=== PATIENT | female | born 1990 | race Asian ===

== ENCOUNTER 2024-01-26 06:41 | Outpatient (REF) | payer OTHER, SELFPAY | END 2024-01-26 06:42 | disposition home or self-care (01) | LOC: HO.UMASIMG 06:41 | PROVIDERS: Visit Provider Family Medicine | DX: Z13.89 Encounter for screening for other disorder (principal) ==

== ENCOUNTER 2024-01-28 06:03 | Outpatient (REF) | payer OTHER, SELFPAY ==
--- NOTE | ~2024-01-28 | US_ITS ---
EXAMINATION: US ABDOMEN COMPLETE CLINICAL INFORMATION: Epigastric pain. COMPARISON: None available. TECHNIQUE: Real-time imaging of the abdominal viscera. FINDINGS: PANCREAS: The visualized pancreas appears unremarkable but the pancreatic tail is obscured by bowel gas. ABDOMINAL AORTA: The proximal, mid, and distal segments are normal in caliber. INFERIOR VENA CAVA: Visualized portions are normal. LIVER: The liver is normal in size but demonstrates increased echogenicity suggesting hepatic steatosis. No focal hepatic lesion. There is no intrahepatic biliary duct dilatation seen. GALLBLADDER: There is a single large fundal gallstone present measuring 1.4 x 1.6 x 1.1 cm. The gallbladder is physiologically distended without evidence of wall thickening or pericholecystic fluid. COMMON BILE DUCT: Normal in caliber measuring 0.3 cm in diameter. RIGHT KIDNEY: No hydronephrosis. No renal calculi or focal parenchymal lesions. The kidney measures 8.7 cm in maximum dimension. LEFT KIDNEY: No hydronephrosis. No renal calculi or focal parenchymal lesions. The kidney measures 9.0 cm in maximum dimension. SPLEEN: Normal. The spleen measures 9.0 cm in maximum dimension. FREE FLUID: None. US/US abdomen complete IMPRESSION: 1. Cholelithiasis without evidence of cholecystitis. 2. Hepatic steatosis. Electronically signed by: Orlin Caal MD 01/28/2024 01:02 PM EDT
== END 2024-01-28 06:04 | disposition home or self-care (01) ==
LOC: HO.UMASIMG 06:03
PROVIDERS: Visit Provider Family Medicine
DX: R10.13 Epigastric pain (principal)
CPT/HCPCS: 76700

== ENCOUNTER 2025-04-18 06:38 | Outpatient (REF) | payer OTHER, SELFPAY ==
--- NOTE | ~2025-04-18 | US_ITS ---
EXAMINATION: US ABDOMEN HISTORY: fatty liver, gallstones, epigastric pain TECHNIQUE: Real-time grayscale ultrasound imaging of the abdomen was performed and images were reviewed. COMPARISON: Comparison is made with the prior examination dated 01/28/2024. FINDINGS: Liver: The right lobe of the liver measures 13.3 cm in size. The left lobe of the liver measures 9.6 cm in size. The liver demonstrates normal homogeneous echotexture. No focal mass or intrahepatic biliary ductal dilatation is identified. There is normal hepatopedal flow in the portal vein. Gallbladder and biliary tree: There is a single mobile 1.5 cm calculus in the gallbladder. There is no wall thickening or pericholecystic fluid. There is no sonographic Simmons sign. The common bile duct is normal in caliber measuring 3 mm. Kidneys: The right kidney measures 10.2 cm in length. The left kidney measures 10.5 cm in length. The kidneys are unremarkable, without evidence of masses, hydronephrosis, or calculi. Pancreas: The pancreatic head, neck, and body are unremarkable. The pancreatic tail is obscured by bowel gas. Spleen: The spleen is normal in size and contour, measuring 9.9 cm in length. Abdominal aorta and inferior vena cava: The visualized portions of the abdominal aorta and inferior vena cava are normal in caliber. There is no free fluid in the abdomen. US/US abdomen complete IMPRESSION: Cholelithiasis. Otherwise unremarkable abdominal ultrasound. Electronically signed by: Hawk Lockett MD 04/18/2025 10:02 AM [facility] [place]
--- OUTSIDE RECORDS SUMMARY | 2025-04-18 06:42 | XMS_ITS | Clinical Summary ---
Author Organization [facility] Address [address] [address] Phone Care Team Providers Care Harbor Tug Captain Name Role Phone Shweta Kuhn MD Primary Care Provider [email or web address] [email or web address] No known active allergies Medications vitamins no.2 ( VITAMIN NO.2 ORAL) Take by mouth. Active ibuprofen (ADVIL,MOTRIN) 600 MG tablet Take 1 tablet (600 mg total) by mouth every 6 (six) hours as needed for pain (specific location in comments). 40 tablet 1 1 Active docusate sodium (COLACE) 100 MG capsule Take 1 capsule (100 mg total) by mouth daily as needed for constipation. 12 capsule 1 1 03/27/20 25 Discontinu ed(No longer taking) Active Problems Problem Noted Date Diagnosed Date Calculus of gallbladder with out cholecystitis without obstruction 03/27/2025 Assessment & Plan (03/27/2025 4:00 PM EST): This is a 34-year-old woman who had a documented gallstone that was large and in the fundus and was greater than 1 cm in size which places her at increased risk for neoplasm of the gallbladder given the size of the gallstone. The patient is also attempting to get again and that may increase her risk for cholecystitis during . I described both these risks to the patient and I also told her that there was no minimally invasive way to get rid of gallstones. The patient reports she does not want to just throw her organs away and would like to talk with her regarding surgery. I discussed laparoscopic cholecystectomy in detail including risk benefits and alternatives. I discussed that she will not be able to lift greater than 5 to 10 pounds for the first 2 weeks after surgery and greater than 15 pounds for another 2 weeks to equal 4 weeks of lifting restrictions. Patient reports she is not ready to undergo surgical intervention at this time and will call us back if she would like to remove her gallbladder. Hyperthyroidism 05/03/2021 Class 1 obesity without seri ous comorbidity with body mass index (BMI) of 33.0 to 33.9 in adult 05/03/2021 Assessment & Plan (05/03/2021 12:24 PM EST): Has gained about 25 pounds with -monitor Screening labs ordered Hair loss 04/29/2021 state 01/24/2021 Overview (01/24/2021): Incision healing well, benign exam Assessment & Plan (01/24/2021 8:20 PM EDT): Keep next PP visit Pap smear abnormality of cer vix/human papillomavirus (HPV) positive 07/06/2020 Overview (07/06/2020): First lifetime pap 06/2020: NIL/HPV pos Plan: repeat pap in 1 year Resolved Problems Problem Noted Date Diagnosed Date Resolved Date Normal , unspecified trimester 12/31/2020 02/07/2021 Breech presentation of fetus 12/19/2020 01/21/2021 Overview (12/27/2020): Noted at 37 week visit, confirmed with US Pt doing spinning babies at home Decided on PCS for breech Assessment & Plan (12/27/2020 1:56 PM EDT): Breech today Echogenic intracardiac focus of fetus on ultrasound 08/31/2020 01/21/2021 Overview (08/31/2020): Pt reassured that risk of down's for this is very low; she had normal first trimester screen. She is however very anxious today, and asks if she can do any further non-invasive testing. I do say she can cfDNA if she wants; reviewed that there could be a cost, and also that her risk is low and I don't think necessary. SHe will consider and contact us if she wants this ordered. Encounter for supervision of normal first in first trimester 06/29/2020 02/07/2021 Overview (12/19/2020): OB-CMI 0 Rh positive GC/Chlam neg PAP done 06/29/20 Tdap given Flu received Hgb 11.9 GTT 128 28 wk Repeat RPR neg GBS neg PPBC * screening NT/first tri screen COVID vaccinated 09/2020 Assessment & Plan (08/01/2020 2:44 PM EDT): Anatomy scan ordered, will do AFP today. Discussed physical activity in , Ralph would like to start using her [place] bike again now that first trimester symptoms are better. Info given re: CBE options. Encounters Date Type Department Care Team Description 03/27/2025 3:00 PM EST Office Visit [facility] [address] [place] [address] Ekaterina Cardoso MD Calculus of gallbladder without cholecystitis without obstruction (Primary Dx) 03/20/2025 Transcribe Orders [facility] [address] [place] [address] Barbara Curtis DO from Last 3 Months Immunizations Immunization Administration Dates Next Due COVID-19 (Pre-03/02) Pfizer Vaccine, mRNA, PF Hepatitis B, unspecified formulation 02/08/2019, 01/04/2019 Influenza Quadrivalent Preservative Free IM 02/09,07/19/2019 Influenza, Unspecified Formulation 02/01/2021 MMR 01/04/2019 Tdap 11/16/2020,01/04/2019 Varicella 02/08/2019,01/04/2019 Family History Medical History Relation Comments No Known Problems Brother Heart attack Father Pneumonia Maternal Aunt Stroke Maternal Uncle Arthritis Mother Diabetes Mother No Known Problems Paternal Aunt Heart attack Paternal Grandfather No Known Problems Paternal Uncle No Known Problems Sister Relation Status Comments Brother Alive Father 42 Maternal Aunt Maternal Grandfather Maternal Grandmother Maternal Uncle Alive Mother Alive Paternal Aunt Alive Paternal Grandfather Paternal Grandmother JONO PINZON VERY OF HER FATHER Paternal Uncle Alive Sister Alive Social History Tobacco Use Types Packs/Day Years Used Date Smoking Tobacco: Never Smokeless Tobacco: Never Tobacco Cessation:Counseling Given: Not Answered Alcohol Use Standard Drinks/Week Comments Not Currently 1 (1 standard drink = 0.6 oz pur e alcohol) Child or Family Care Answer Date Record ed Do you have problems with on e of the following making it difficult for you to work, study, or receive health care? No 04/29/2021 Education Answer Date Recorded Are you interested in more education? Not on magdalene e 05/08/2023 Are you concerned about learning? Not on file 05/08/2023 No 05/08/2023 No 05/08/2023 Food Answer Date Recorded Within the past 6 months we worried whether our food would run out before we got money to buy more. Never True 04/29/2021 Within the past 6 months the food we bought just didn't last and we didn't have enough money to get more. Never True Residential Stability Answer Date Recor ded What is your housing situation today? I have marianna wang 04/29/2021 How many times have you moved in the past 12 mon ths? One time 04/29/2021 06 Are you worried that in t he next 2 months, you may not have your own housing to live in? No 04/29/2021 Paying for Meds Answer Date Recorded Do you have trouble paying for medicines? No 04/29/2021 Paying Utility Bills Answer Date Record ed Do you have trouble paying your heating or elect ricity bill? No 04/29/2021 Transportation Answer Date Recorded Has the lack of transportati on kept you from medical appointments or from getting medications? No 04/29/2021 Unemployment Answer Date Recorded Are you currently unemployed or working on a part-time or temporary basis, and looking for work? No 04/29/2021 Digital Access Answer Date Recorded No 10/04/2022 No 10/04/2022 Reliable internet access at home? Not on file 10/04/2022 Device with a working camera? 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 Not on file Not on file Last Filed Vital Signs Vital Sign Reading Time Taken Comments Blood Pressure 110/70 03/27/2025 3:05 PM EST Pulse 68 03/27/2025 3:05 PM EST Temperature 36.6 C (97.8 F) 03/27/2025 3:05 PM EST Respiratory Rate 18 01/04/2021 3:00 PM EDT Oxygen Saturation 99% 03/27/2025 3:05 PM EST Inhaled Oxygen Concentration - - Weight 78.9 kg (174 lb) 03/27/2025 3:05 PM EST Height 157.5 cm (5' 2.01 ) 03/27/2025 3:05 PM ES T Body Mass Index 31.82 03/27/2025 3:05 PM EST Plan of Treatment Upcoming Encounters Date Type Department Care Team (Late st Contact Info) Description 04/20/2025 9:00 AM EST Office Visit [facility] [address] [place] [address] [place] [address] Wendie Sandoval MD [address] [place] [address], [address] [place] [address] [email or web address] Health Maintenance Due Date Last Done Comments DEPRESSION SCREENING 04/29/2022 04/29/2021 PAP SMEAR 06/29/2023 06/29/2020 SCREENING FOR DIABETES 04/29/2024 1, 10/01/2020 INFLUENZA VACCINE (#1) 2024 1, 03/02/2020, 07/19/2019 COVID-19 VACCINE (2024-2 6 season) 2025 09/07/2020 Adult Td,Tdap Booster 11/16/2030 11/16/2020 , 01/04/2019 HEPATITIS C SCREENING Completed 06/29/2020 , 06/29/2020 HIV ONE-TIME SCREENING (18-6 5 YEARS) Completed 06/29/2020 SMOKING STATUS SCREENING (On ce After 26 Yrs) Completed 03/27/2025 HEPATITIS A VACCINES Aged Out No long er eligible based on patient's age to complete this topic HIB VACCINES Aged Out No longer eligi ble based on patient's age to complete this topic IPV VACCINES Aged Out No longer eligi ble based on patient's age to complete this topic MENINGOCOCCAL VACCINES (ACWY) Aged Out No longer eligible based on patient's age to complete this topic MENINGOCOCCAL VACCINES (B) Aged Out N o longer eligible based on patient's age to complete this topic PNEUMOCOCCAL VACCINES (0-49 years) Aged Out No longer eligible b ased on patient's age to complete this topic Medical Devices Not on file Procedures Procedure Name Priority Date/Time Associated Diagnosis Comments GLUCOSE Routine 10/01/2020 12:35 PM EDT Encounter for supervision of normal first in first trimester HEPATITIS C ANTIBODY, QUALITATIVE Routine 06/29/2020 1:35 PM EST Encounter for supervision of normal first in first trimester PAP TEST Routine 06/29/2020 12:00 AM EST from Last 3 Months or Most Recently Relevant to Health Maintenance Results * (ABNORMAL) Glucose (10/01/2020 12:35 PM EDT) GLUCOSE 128(H) 70 - 99 mg/dL [facility] Blood 10/01/2020 12:3 5 PM EDT 10/01/2020 1:16 PM EDT us Marii Damon MD LAB BLOOD BKR ORDERABLES F inal Result [facility] [address] [place], [place] [id number] * Hepatitis C antibody, qualitative (06/29/2020 1:35 PM EST) HCV NON-REACTIV E NON-REACTI VE [facility] Blood 06/29/2020 1:35 PM EST 06/29/2020 1:49 PM EST us Wendie Sandoval MD LAB BLOOD BKR ORDERABLES Magdalena familia Result [address] [address] * Pap Smear (06/29/2020 12:00 AM EST) 06/29/2020 07/02/2020 8:5 2 AM EST Narrative SEE NARRATIVE - 07/05/2020 12:17 PM EST [address] [address] Clam Bed Worker: Tiffany Schmitz MD REAL ESTATE SITE ANALYST Cytology Report FINAL DIAGNOSIS A. PAP SMEAR (SUREPATH) CE: SPECIMEN ADEQUACY: Satisfactory for evaluation; transformation zone present. INTERPRETATION: NEGATIVE FOR INTRAEPITHELIAL LESION OR MALIGNANCY. Electronically Signed Out By: URI Stevenson(ASCP) URI Hutson(ASCP) The Pap test is a screening test primarily for squamous cancers and precursors and has associated false-negative and false-positive results. New technologies such as liquid-based preparations may decrease but will not eliminate all false-negative results. Regular sampling and follow-up of unexplained clinical signs and symptoms are recommended to minimize false negative results. PROCEDURES/ADDENDA HPV Testing (Requested) Ordered Date: 07/02/2020 A. PAP SMEAR (SUREPATH) CE: Human Papilloma Virus TEST Positive for high-risk Human Papilloma Virus (HR-HPV); additional testing was necessary to identify the most virulent high-risk strains. The current sample is positive for high-risk Human Papilloma Virus type Other high risk (non-type 16, 18, or 45) probe set (Includes 31, 33, 35, 39, 51, 52, 56, 58, 59, 66, 68) by [employer] Onclarity HR-HPV analysis. Negative for high-risk Human Papilloma Virus types 16, 18 and 45 by Surjit Jesus Onclarity HR-HPV analysis. Clinical correlation is advised. This HPV test was performed at [facility], [address] [place] [address]. This test has been FDA approved for SurePath cervical cytology specimens. The accuracy and precision of this test for all other specimen sources has been verified in the Cytopathology Laboratory of the [facility] and has not been cleared or approved by the U.S. Food and Drug Administration. Clinical correlation is advised. CLINICAL HISTORY Date of Last Menstrual Period: Not Provided Menstrual History: Other Clinical Conditions: Screening Pap SPECIMEN SOURCE A: PAP SMEAR (SUREPATH) CE Patient Name: RALPH RENEE : 1990 (Age: 29) Sex: F Institution: [facility] Location: [facility] Date of Collection: 06/29/2020 Date of Reported: 07/04/2020 11:13 Results to: Wendie Sandoval MD us Wendie Sandoval MD CYTOLOGY ORDERABLES Edited Re sult - Final SEE NARRATIVE from Last 3 Months or Most Recently Relevant to Health Maintenance Insurance [facility] CIGNA WELLFLEET CIGNA WELLFLEET CIGNA WELLFLEET CIGCLAIRE WELLDEEET ELIZA WELLKYLEIGHT Advance Directives For more information, please contact: [phone] (9AM - 5PM [place], Thursday-Thursday) Documents on File Type Date Recorded Patient [place] [facility] Proxy 01/08/2021 1:28 PM * Full Code (Latest Code Status on File) Date Activated Date Inactivated Comments 12/31/2020 7:26 AM Question Answer Comments Code Status Confirmed With: Patient Care Teams Harbor Tug Captain Relationship Specialty Start Date End Date Shweta Kuhn MD [email or web address] PCP - General Family Medicine 05/03/21 Additional Source Comments The information contained in this document represents components of the legal health record. It is not the complete legal health record.[facility]
--- OUTSIDE RECORDS SUMMARY | 2025-04-18 06:42 | XMS_ITS | Encounter Summary ---
Author Organization [facility] Address [address] [place] [address] [place] [phone] Phone Care Team Providers Care Leak Detector Name Role Phone Marii Damon MD Primary Care Provider [phone]- [phone] Shweta Kuhn MD Primary Care Provider [email or web address] Encounter Details Date Type Department Care Team (Late Contact Info) Description 12/14/2020 Ancillary Orders [facility] [address] [place] [address] [place] [address] Marii Damon MD [address] [facility], [address] [place] [id number] [email or web address] Encounter for supervision of normal first in first trimester Social History Tobacco Use Types Packs/Day Years Used Date Smoking Tobacco: Never Smokeless Tobacco: Never Alcohol Use Standard Drinks/Week Comments Yes 1 (1 standard drink = 0.6 oz pur e alcohol) Comments Yes Sex and Gender Information Value Date Recorded Sex Assigned at Female 08/12/2020 11:04 AM EDT Legal Sex Female 12:41 PM EST Gender Identity Female 08/12/2020 11:04 AM EDT Sexual Orientation Straight 08/12/2020 11 :04 AM EDT 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 Not on file Not on file documented as of this encounter Plan of Treatment Upcoming Encounters Date Type Department Care Team (Late Contact Info) Description 04/20/2025 9:00 AM EST Office Visit [facility] [address] [place] [address] [place] [address] Wendie Sandoval MD [address] [place] [address], [address] [place] [address] documented as of this encounter Results * US OB GREATER THAN OR EQUAL TO 14 WEEKS FOLLOW-UP ONLY (12/14/2020 2:38 PM EDT) Anatomical Region Laterality Modality Abdomen, Pelvis, Uterus/Adnexa U ltrasound 12/14/2020 3:48 PM EDT Impressions 12/15/2020 1:40 PM EDT Single live IUP in breech presentation with an EFW of 2796 grams which is at the 28th percentile. The ALEX is normal. Narrative 12/15/2020 1:40 PM EDT INDICATION: Presentation DATING: Exam Date: Last Menstruation: 03/30/2020 Estimated Delivery Date: January 04, 2021 Ultrasound Age: (36)w(00)d Gestational Age by LMP: (37)w(00)d Estimated Delivery by AUA: January 11, 2021 ANATOMY SCAN: Biparietal Diameter measures : 8.79 cm; dating of: (35)w(04)d; 24% by Hadlock Head Circumference measures : 32.17 cm; dating of: (36)w(03)d; 12% by Hadlock Abdominal Circumference measures : 31.84 cm; dating of: (35)w(06)d; 28% by Hadlock Femur Length measures : 7.05 cm; dating of: (36)w(01)d; 27% by Hadlock HC/AC Ratio is : 1.01 FL/BPD Ratio is : 80 % FL/AC Ratio is : 22 % Estimated Weight is : 6 lb 3 oz / 2796 g / 28 % by Hadlock Heart Activity : Present with the Heart Rate at : 126 bpm. Presentation is : Footling Breech Amniotic Fluid presents : Normal Maximum Vertical Pocket is : 6.5 cm Placental Location : Anterior right lateral. Placental Grade is : 2. WELLBEING ASSESSMENT: Amniotic Fluid Index (ALEX) : 14.18 cm Quad 1 : 4.93 cm Quad 2 : 6.51 cm Quad 3 : 0 cm Quad 4 : 2.74 cm TECH COMMENTS: [place] . Footling breech presentation. EFW = 28th%. ALEX = 14 cm. Fetus is active and breathing motions were observed. Transabdominal scanning was performed. Procedure Note Roland Luque MD - 12/15/2020 INDICATION: Presentation DATING: Exam Date: Last Menstruation: 03/30/2020 Estimated Delivery Date: January 04, 2021 Ultrasound Age: (36)w(00)d Gestational Age by LMP: (37)w(00)d Estimated Delivery by AUA: January 11, 2021 ANATOMY SCAN: Biparietal Diameter measures : 8.79 cm; dating of: (35)w(04)d; 24% byHadlock Head Circumference measures : 32.17 cm; dating of: (36)w(03)d; 12% byHadlock Abdominal Circumference measures : 31.84 cm; dating of: (35)w(06)d; 28%by Hadlock Femur Length measures : 7.05 cm; dating of: (36)w(01)d; 27% by Hadlock HC/AC Ratio is : 1.01 FL/BPD Ratio is : 80 % FL/AC Ratio is : 22 % Estimated Weight is : 6 lb 3 oz / 2796 g / 28 % by Hadlock Heart Activity : Present with the Heart Rate at : 126 bpm. Presentation is : Footling Breech Amniotic Fluid presents : Normal Maximum Vertical Pocket is : 6.5 cm Placental Location : Anterior right lateral. Placental Grade is : 2. WELLBEING ASSESSMENT: Amniotic Fluid Index (ALEX) : 14.18 cm Quad 1 : 4.93 cm Quad 2 : 6.51 cm Quad 3 : 0 cm Quad 4 : 2.74 cm TECH COMMENTS: [place] . Footling breech presentation. EFW = 28th%. ALEX = 14cm. Fetus is active and breathing motions were observed. Transabdominal scanning was performed. IMPRESSION: Single live IUP in breech presentation with an EFW of 2796 grams which isat the 28th percentile. The ALEX is normal. us Marii Damon MD IMG OBSTETRIC Final Res ult documented in this encounter Visit Diagnoses Diagnosis Encounter for supervision of normal first in first trimester Encounter for supervision of normal first in first trimester documented in this encounter Care Teams Leak Detector Relationship Specialty Start Date End Date Marii Damon MD [address] [place] [address] [address] [place] [address] PCP - General Obstetrics and Gynecology 10/01/2004/11 Shweta Kuhn MD [email or web address] PCP - General Family Medicine 05/03/21 documented as of this encounter Additional Source Comments The information contained in this document represents components of the legal health record. It is not the complete legal health record.[facility]
--- OUTSIDE RECORDS SUMMARY | 2025-04-18 06:42 | XMS_ITS | Encounter Summary ---
Author Organization [facility] Address [address] [place] [address] [place] [address] Phone Care Team Providers Care Peer Educator Name Role Phone Marii Damon MD Primary Care Provider [phone]- [phone] Shweta Kuhn MD Primary Care Provider [email or web address] Encounter Details Date Type Department Care Team (Late st Contact Info) Description 12/31/2020 Procedure Pass [facility] Procedures [address] [place] [address] Social History Tobacco Use Types Packs/Day Years Used Date Smoking Tobacco: Never Smokeless Tobacco: Never Alcohol Use Standard Drinks/Week Comments Not Currently 1 (1 standard drink = 0.6 oz pur e alcohol) Comments No Sex and Gender Information Value Date Recorded Sex Assigned at Female 08/12/2020 11:04 AM EDT Legal Sex Female 12:41 PM EST Gender Identity Female 08/12/2020 11:04 AM EDT Sexual Orientation Straight 08/12/2020 11 :04 AM EDT 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 Wish to be (Past 1 Month) No 021 7:52 AM EDT Orly Pinzon RN 2. Non-Specific Active Suici carson Thoughts (Past 1 Month) No 12/31/2020 7:52 AM EDT Luan Pinzon RN 6. Suicidal Behavior (Lifetime) No 7:52 AM EDT Orly Pinzon RN documented as of this encounter Plan of Treatment Upcoming Encounters Date Type Department Care Team (Late st Contact Info) Description 04/20/2025 9:00 AM EST Office Visit [facility] [address] [place] [address] [place] [address] Wendie Sandoval MD [address] [place] [address], [address] [address] [email or web address] documented as of this encounter Visit Diagnoses Not on filedocumented in this encounter Care Teams Peer Educator Relationship Specialty Start Date End Date Marii Damon MD [address] [place] [address], [address] [address] PCP - General Obstetrics and Gynecology 10/01/2004/11 Shweta Kuhn MD [email or web address] PCP - General Family Medicine 05/03/21 documented as of this encounter Additional Source Comments The information contained in this document represents components of the legal health record. It is not the complete legal health record.[facility]
== END 2025-04-18 06:39 | disposition home or self-care (01) ==
LOC: HO.UMASIMG 06:38
PROVIDERS: Visit Provider Family Medicine
DX: Z00.00 Encounter for general adult medical examination without abnormal findings (principal); K80.20 Calculus of gallbladder without cholecystitis without obstruction; E78.5 Hyperlipidemia, unspecified; Z13.31 Encounter for screening for depression
CPT/HCPCS: 76700

== ENCOUNTER → 2025-04-18 09:10 | Outpatient (BNV) | payer OTHER, SELFPAY | PROVIDERS: Visit Provider Radiology Diagnostic Radiology | DX: K80.20 Calculus of gallbladder without cholecystitis without obstruction (principal) | CPT/HCPCS: 76700 ==